=== PATIENT | female | born 1980 | race Caucasian/White ===

== ENCOUNTER 2017-08-01 10:52 | Emergency (ER) | payer OTHER ==
[2017-08-01 11:33] LABS: ABS Basophils 0 10^3/ul (0-0.2); ABS Eosinophils 0.1 10^3/ul (0-0.6); ABS Lymphocytes 2.3 10^3/ul (1.0-4.8); ABS Monocytes 0.4 10^3/ul (0-0.8); ABS Nucleated RBC 0 10^3/ul; Eosinophil % 1.2 % (0-6); Hematocrit 39 % (35-47); Hemoglobin 13.3 g/dl (12.0-16.0); Lymphocyte % 39.2 % (25-47); Mean Corpuscular HGB Conc 35 g/dl (31-36); Mean Corpuscular Hemoglobin 31 pg (27-31); Mean Corpuscular Volume 89 fL (80-97); Nucleated Red Blood Cells % 0; Platelet Count 315 10^3/ul (150-450); Red Blood Count 4.32 10^6/ul (4.00-5.40); Red Cell Distribution Width 13 % (10.5-15); White Blood Count 5.8 10^3/ul (3.5-10.8)
[2017-08-01 11:51] LABS: EGFR Non-African American 96.8 (>60)
--- NOTE | 2017-08-01 11:57 | RAD ---
Indication: Facial numbness. CT of the brain was performed without IV contrast. Ventricular structures are midline. No midline shift is noted. Extra-axial spaces are unremarkable. There is no evidence of intracranial mass or hemorrhage. No other high or low density lesions are identified. Mucosal thickening of the right maxillary sinus with air-fluid level is noted. IMPRESSION: There is no intracranial mass or hemorrhage.
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
[2017-08-01 14:13] VITALS: BP 112/74
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
== END 2017-08-01 14:11 | disposition short-term general hospital (02) ==
LOC: ED 10:52
DX: R20.0 Anesthesia of skin (principal); R20.2 Paresthesia of skin; W86.8XXA Exposure to other electric current, initial encounter; Y92.9 Unspecified place or not applicable; Z82.3 Family history of stroke
CPT/HCPCS: 36415; 70450; 80053; 82550; 83735; 84100; 84702; 85025; 99282

== ENCOUNTER 2018-06-22 09:52 | Emergency (ER) | payer OTHER ==
[2018-06-22 10:06] VITALS: BP 112/70
--- NOTE | 2018-06-22 10:56 | UC ---
Hand/Wrist HPI - HPI Summary HPI Summary: CHIEF COMPLAINT and HPI: Healthy 37-year-old female with continued pain on the ulnar aspect of her long finger of the right hand underneath the nail. This condition began one week ago when she put her hand in a garbage can and noted that there were 2, perhaps plastic, foreign bodies under the nail. She removed these. The pain is continued and she is concerned about any residual foreign body. VITAL SIGNS & SaO2 REVIEWED. Within normal limits unless noted here. NURSES NOTE REVIEWED. "last felt something jab right hand 3rd digit while reaching under seat. removed a clear sliver like item. still sore red " - History Of Current Complaint Chief Complaint: UCSkin Stated Complaint: FB IN FINGER Time Seen by Provider: 06/22/18 10:49 Hx Last Menstrual Period: now Pain Intensity: 7 - Allergies/Home Medications Allergies/Adverse Reactions: Allergies Allergy/AdvReac Type Severity Reaction Status Date / Time No Known Allergies Allergy Verified 06/22/18 10:06 PMH/Surg Hx/FS Hx/Imm Hx - Additional Past Medical History Additional PMH: PAST MEDICAL HISTORY- denies admission to hospital for medical conditions or surgeries. CHRONIC and RECURRENT HEALTH PROBLEM LIST REVIEWED. VISIT HISTORY REVIEWED. MEDICATIONS & ALLERGIES REVIEWED. HYPERTENSION STATUS: na FAMILY HISTORY: Positive for: cardiovascular disease Patient denies family history of: stroke, diabetes, cancer. 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 Previously Healthy: Yes - Surgical History Surgical History: None - Family History Known Family History: Negative: Cardiac Disease - Social History Alcohol Use: None Substance Use Type: None Smoking Status (MU): Never Smoked Tobacco Review of Systems All Other Systems Reviewed And Are Negative: Yes Constitutional: Positive: Negative Skin: Positive: Negative Eyes: Positive: Negative ENT: Positive: Negative Respiratory: Positive: Negative, Shortness Of Breath Cardiovascular: Positive: Negative. Negative: Palpitations Gastrointestinal: Positive: Negative. Negative: Abdominal Pain Neurovascular: Positive: Negative Musculoskeletal: Positive: Other: - tenderness at the end of the long finger of the right hand Physical Exam - Summary Physical Exam Summary: Appearance: The patient is well-appearing, is in no pain or distress, and is well-nourished. Eyes: Conjunctiva are clear. Pupils are equal and reactive to light and accommodation. Extra ocular muscle movement is intact. ENT: The hearing is grossly normal, the pharynx is normal, and the TMs are normal. There is no muffled or hoarse voice. No stridor. Neck: The neck is supple and there is no lymphadenopathy. Respiratory: The chest is non-tender to palpation and without crepitus. The lungs are clear, there are normal breath sounds, and there is no respiratory distress. No wheezes, rales or rhonchi. Cardiovascular: Heart sounds reveal a regular rate and rhythm. There are no clicks, rubs or murmurs. There are no carotid bruits or thrills. Circulation is grossly intact. Abdomen: The abdomen is soft and nontender. There is no organomegaly. Bowel sounds are present and within normal limits. No point tenderness at McBurneys point. No CVA tenderness. Musculoskeletal: Strength is intact. The patient moves all extremities. There is pain to palpation just distal to the nail laterally of the 4th finger of the right hand. There is some crusted blood in the groove between the nail and the skin fold. There is no redness, swelling, lymphangitis or cellulitis. Neurological: The patient is alert. Motor and sensory are examination grossly intact. Speech is normal. Psychological: The patient displays age appropriate behavior, and is conversant. GCS=15. Skin: Negative for rashes. Triage Information Reviewed: Yes Vital Signs: Initial Vital Signs Temp 98.7 F 06/22/18 10:01 Pulse 71 06/22/18 10:01 Resp 18 06/22/18 10:01 BP 112/70 06/22/18 10:01 Pulse Ox 100 06/22/18 10:01 Vital Signs Reviewed: Yes Hand/Wrist Course/Dx - Course Course Of Treatment: MEDICAL DECISION MAKING and PLAN: Healthy 37-year-old female with continued pain on the ulnar aspect of her long finger underneath the nail. This condition began one week ago when she put her hand in a garbage can and noted that there were 2, perhaps plastic, foreign bodies under the nail. She removed these. The pain is continued and she is concerned about any residual foreign body. Examination shows full circulation, motor and sensory. However, she is tender over the distal finger. There is no ascending lymphangitis or cellulitis. X- ray and ultrasound did not reveal a foreign body. In discussion with the patient. We decided to start her on 5 days of Keflex and use warm soaks. If she may be experiencing residual pain from a foreign body. There may be a foreign body that has not been noted. Or she may have an infection to the finger. There is no tenderness over the flexor tendon. My differential is foreign body under the nail versus cellulitis versus residual pain from a splinter. Patient with foreign body sensation near nail, distal phalanx long finger right hand. Indication: Right middle finger injury. 3 views of the right middle finger demonstrates no fracture. No other bone or joint abnormality is identified. No evidence of radiopaque foreign body is noted. IMPRESSION: No fracture or radiopaque foreign body is identified. Indication: Splinter in the distal right third digit. Real-time sonography of the third and fourth digits was obtained. There is no evidence of radiopaque foreign body identified. Lateral masses are noted. Nailbed is identified. IMPRESSION: No evidence of a echogenic foreign body is identified. MEDICATIONS REVIEWED. HYPERTENSION STATUS REVIEWED WITH PATIENT IF blood pressure is above 120/80. - Differential Dx/Diagnosis Differential Diagnosis/HQI/PQRI: Cellulitis, Foreign Body, Tenosynovitis, Other Provider Diagnosis: Cellulitis Discharge - Sign-Out/Discharge Documenting (check all that apply): Patient Departure All imaging exams completed and their final reports reviewed: Yes - Discharge Plan Condition: Stable Disposition: HOME Prescriptions: Cephalexin CAP* [Keflex 500 CAP*] 500 mg PO QID #20 cap MDD 4 Patient Education Materials: Cellulitis (DC) Referrals: Shari Bautista MD [Primary Care Provider] - Additional Instructions: WE DISCUSSED: PLEASE SEEK CARE AT THE EMERGENCY DEPARTMENT IF SYMPTOMS WORSEN OR IF NEW SYMPTOMS DEVELOP. FOLLOW UP WITH YOUR PRIMARY CARE PHYSICIAN IF CONDITION CONTINUES BEYOND 3 DAYS WITHOUT IMPROVEMENT. YOUR DIAGNOSIS IS: foreign body sensation of your right long finger, localized cellulitis YOUR PRESCRIPTION RECOMMENDATION IS: Keflex, 500mg, 4 times a day for 5 days. OTHER INSTRUCTIONS: frequent warm, moist heat to finger; watch for any signs of infection: red, hot, swollen, increased pain, or temperature. Recheck if not improved in 5 days. Sooner if condition is worsening. FOR PAIN AND/OR SLEEP: For pain: Ibuprofen (Motrin and other brand names) 400-600mg PLUS acetaminophen (Tylenol and other brand names) 500mg - 1000mg every 8 hours. - Billing Disposition and Condition Condition: STABLE Disposition: Home
== END 2018-06-22 12:54 | disposition home or self-care (01) ==
LOC: UCEAST 09:52
DX: L03.011 Cellulitis of right finger (principal)
CPT/HCPCS: 73140; 99212; G0463